=== PATIENT | male | born 1990 | race Caucasian/White ===

== ENCOUNTER 2017-10-02 15:38 | Emergency (ER) | payer OTHER ==
[~2017-10-02] VITALS: Ht 172.7 cm; Wt 68.0 kg
--- NOTE | 2017-10-02 15:53 | ED GI/GU/ABDOMINAL COMPLAINT ---
History of Present Illness General Chief Complaint: Abdominal Pain/Flank Pain Stated Complaint: ABD PAIN X5DAYS Source: patient, old records Exam Limitations: no limitations Vital Signs & Intake/Output Vital Signs & Intake/Output Vital Signs Date Time Temp Pulse Resp B/P B/P Pulse O2 O2 Flow FiO2 Mean Ox Delivery Rate 10/026 98.5 74 18 128/74 97 Room Air Room Air 10/02 2049 97.2 80 18 125/72 99 Room Air Room Air ED Intake and Output 10/03 0000 10/02 1200 Intake Total 1100 Output Total Balance 1100 Intake, IV 1100 Patient 150 lb Weight Weight Reported by Patient Measurement Method Allergies Coded Allergies: NO KNOWN ALLERGIES (10/02/17) Triage Note: 26 YO MALE TO TRIAGE C/O UPPER ABD PAIN X5 DAYS, STATES THE PAIN IS NOT MOVING TO HIS LOWER-MID ABDOMEN. +NAUSEA. DENIES URIANRY S/S. -DIARRHEA. Triage Nurses Notes Reviewed? yes Onset: Abrupt Duration: day(s): (5), constant Timing: recent history Quality/Severity: aching, moderate, sharpness Severity Numbers: 6 Location: generalized abdomen Radiation: no radiation Activities at Onset: none No Modifying Factors: none Associated Symptoms: nausea HPI: 26-year-old male with history of chronic abdominal pain presents complaining of a 5 day history of diffuse abdominal pain nonradiating not associated with eating or drinking. Pain is diffuse however worse over the mid abdomen. He states the pain has been making him nauseous. No vomiting no diarrhea constipation. He states he had similar symptoms when he was younger but lost a lot of weight and hasn't had any problems up until this past week. No recent travel no sick contacts. He denies history of abdominal surgeries in the past with chest pain back pain and urinary urgency frequency dysuria (Sathya Liang) Reconcile Medications Whey Protein Isolat/Amino Acid (Pre-Protein Powder) (Unknown Strength) POWDER (Unknown Dose) PO DAILY SUPPLEMENT (Reported) (Josh ARZATE,Jose Alfredo Jean-Baptiste) Past History Travel History Traveled to [place] past 21 day No Medical History Any Pertinent Medical History? 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 No (Sathya Liang) Review of Systems Review of Systems Constitutional: Reports: see HPI. Comments Review of systems: See HPI, All other systems negative. Constitutional, no chills no fever, no malaise HEENT: no sore throat no congestion Cardiovascular: No chest pain Skin: no rashes, no change in skin Respiratory: No dyspnea no cough GI: (+) nausea, no vomiting, no diarrhea, no bloating/constipation : No dysuria No hematuria, no frequency Muscle skeletal: No joint pain, no back pain Neurologic: , no headache Heme/endocrine: No bruising (Sathya Liang) Physical Exam Physical Exam General Appearance: well developed/nourished, alert Gastrointestinal: soft Comments: Well-developed well-nourished person in no acute distress HEENT: Normal EENT exam; PERRL, EOMI, HEAD is atraumatic. moist mucous membranes. Neck: Supple, normal range of motion Back: Nontender, Full range of motion Cardiovascular: Regular rate and rhythms no murmur Respiratory: Chest nontender.There were no bony deformities, no asymmetry. No respiratory distress. Patient speaking in full complete sentences. Breath sounds clear to auscultation bilaterally: NO W/R/R Abdomen: Soft, DIFFUSE tenderness including to the RLQ, neg rovsing, nondistended Normal bowel sounds. No rebound/guarding Extremity: No edema, full range of motion of extremities Neuro: Alert oriented x3, motor sensory normal. There were no obvious focal neurologic abnormalities. Skin: No appreciable rash on exposed skin, skin is warm and dry. Psych: Mood and affect is normal, memory and judgment is normal. Core Measures ACS in differential dx? No Sepsis Present: No Sepsis Focused Exam Completed? No (Sathya Liang) Progress Differential Diagnosis: appendicitis, bowel obstruction, colon cancer, cholecystitis, diverticulitis, gastritis, hepatitis, hernia, inflamm bowel dis, pancreatitis, peptic ulcer, PUD/GERD, perforated viscous, SBO Plan of Care: Current Medications Sig/John Start time Last Medication Dose Stop Time Status Admin Dextrose/Water 100 ML .Q1H 10/02 2100 CAN ([id number] (Standard Order)) Labs ordered old records reviewed patient acute Toradol Zofran IV, CAT scan ordered 1800 dr moreno saw and evaluated the pt, he spoke with BC breaux iv ordered, we will have surgical pa evaluate the pt 1999 surgical pa shadia singh in dept to eval 2019 dr nava in dept to eval pt- He will speak with the pts mother over the phone prior determining disposition (Olena JACOBS,Sathya) YONY IBARRA was discussed with ME HANDOFF IN which patient's disposition plan is pending surgery discussion I reevaluated patient and he is currently resting comfortable bedside it is noted to be that Dr. Nava did evaluate patient and we discussed risks and benefits of possible surgical intervention versus observation versus to be discharged home and to return if symptoms worsen Patient and mother decided that they want to be discharged Discussed disposition and plan that the patient requested with Dr. Nava who was aware and advised to return to emergency with symptoms worsen which I did to the patient (Sathya Tong) Diagnostic Imaging: Viewed by Me: CT Scan. Discussed w/RAD: CT Scan. Radiology Impression: PATIENT: ROSELINE PINTO PRESENT AGE: 26 PATIENT ACCOUNT NO: [id number] : 92 LOCATION: [facility] ORDERING PHYSICIAN: Sathya JACOBS SERVICE DATE: 10/02/17 EXAM TYPE: CAT - CT ABD & PELVIS W IV CONTRAST EXAMINATION: CT ABDOMEN AND PELVIS WITH CONTRAST CLINICAL INFORMATION: Right lower quadrant abdominal pain. Nausea and vomiting. Rule out appendicitis. COMPARISON: MRI scan of the pelvis dated 2006. TECHNIQUE: Multidetector CT volumetric acquisition of the abdomen and pelvis was performed after the administration of 94 mL of intravenous Optiray 320. The data set was reformatted in the sagittal and coronal planes and reviewed on an independent workstation. DLP: 312.77 mGy-cm. FINDINGS: LOWER CHEST: Included lung bases unremarkable. LIVER, GALLBLADDER, BILIARY TREE: Liver normal size and attenuation. No focal cystic or solid mass or intra-or extrahepatic ductal dilatation. Hepatic and portal veins patent. Gallbladder partially distended and within normal limits. PANCREAS: Normal. No ductal dilatation, mass, or surrounding stranding. SPLEEN: Normal size and appearance. Splenic vein patent. ADRENAL GLANDS AND KIDNEYS: Adrenal glands normal. Kidneys bilaterally symmetric in size and function. No focal mass, hydronephrosis, nephrolithiasis or perinephric stranding. URETERS AND BLADDER: Ureters decompressed and within normal limits. Bladder partially distended and within normal limits. PELVIC ORGANS: Prostate gland and seminal vesicles are unremarkable. The left testicle is not included in the kqpht-hf-xhiw of the exam or is surgically absent. GASTROINTESTINAL TRACT: There are multiple loops of mildly fluid distended small bowel in the right lower quadrant in region of the terminal ileum. In addition, best seen on the coronal series 602, image 38, a elongated tubular fluid-filled structure is seen with mucosal hyperenhancement and average diameter of 1.2 cm. This is suspicious for acute appendicitis with localized right lower quadrant ileus. No evidence of inflammation or abscess formation is seen. No definite free air is seen. The colon is unremarkable. LYMPHOVASCULAR STRUCTURES: Abdominal aorta normal in caliber. No periaortic collections. No abdominal or pelvic adenopathy or free fluid collection. BONES: Within normal limits. IMPRESSION: Above findings are highly suspicious for acute appendicitis with localized right lower quadrant ileus. No evidence of bowel perforation or abscess formation. Findings discussed with Dr. Jose Alfredo Moreno , 6:03 PM. DICTATED BY: Kassidy Gomez MD DATE/TIME DICTATED:10/02/171738 PROFILING MACHINE SETUP OPERATOR:EVAN DATE/TIME TRANSCRIBED:10/02/171738 CONFIDENTIAL, DO NOT COPY WITHOUT APPROPRIATE AUTHORIZATION. <Electronically signed in Other Vendor System> SIGNED BY: Kassidy Gomez MD 10/02/17 180 Initial ED EKG: none Hand-Off Endorsed To: Sathya Tong Endorsed Time: 2100 Pending: consult (surgery) (Sathya Liang) Departure Departure Disposition: STILL A PATIENT Condition: Stable Clinical Impression Primary Impression: Appendicitis Referrals: Pallavi ARZATE,Erik Jean-Baptiste (PCP/Family) Cal Jeong MD Departure Forms: Customer Survey General Discharge Information (Sathya Liang) PA/DRILL SHARPENER OPERATOR Co-Sign Statement Statement: ED Attending supervision documentation- [X] I saw and evaluated the patient. I have also reviewed all the pertinent lab results and diagnostic results. I agree with the findings and the plan of care as documented in the PA's/DRILL SHARPENER OPERATOR's documentation. [X] I have reviewed the ED Record and agree with the PA's/DRILL SHARPENER OPERATOR's documentation. [] Additions or exceptions (if any) to the PAs/DRILL SHARPENER OPERATOR's note and plan are summarized below: [5 days ago after eating patient had a sudden onset of sharp intense pain to his epigastric area. The pain lasted a few hours before solely resolving. Patient has had no symptoms since then until this afternoon when the pain came back. Pain is in his epigastric area however radiates out to the rest of his abdomen. The pain is constant. There are no aggravating or mitigating factors. The pain is sharp and stabbing in nature. He rates the pain at 6 out of 10. There is no nausea or vomiting. There is no constipation or diarrhea. On exam he has diffuse abdominal pain without any rebound or guarding. The worst pain pain is most intense in his epigastric area. Case was discussed with Dr. Nava. He will evaluate.] (Josh ARZATE,Jose Alfredo Jean-Baptiste) Departure Additional Instructions: As discussed if you develop any new concerning symptoms or symptoms worsen return to emergency room, begin the prescription of Zofran for nausea, per schizophrenia [facility]. Follow-up with gastroenterology Dr. Jeong if symptoms still continue this week BEGIN Tylenol or Motrin for pain (Sathya Tong) most intense in his epigastric area. Case was discussed with Dr. Nava. He will evaluate.] (Josh ARZATE,Jose Alfredo Jean-Baptiste) Departure Additional Instructions: As discussed if you develop any new concerning symptoms or symptoms worsen return to emergency room, begin the prescription of Zofran for nausea, per schizophrenia [facility]. Follow-up with gastroenterology Dr. Jeong if symptoms still continue this week BEGIN Tylenol or Motrin for pain (Sathya Tong)
[2017-10-02 16:32] LABS: ABSOLUTE BASOPHIL COUNT 0.1 /CUMM (0.0-0.2); ABSOLUTE EOSINOPHIL COUNT 0 /CUMM (0.0-0.7); ABSOLUTE GRANULOCYTE CT 5.3 /CUMM (1.4-6.5); ABSOLUTE LYMPH COUNT 1.9 /CUMM (1.2-3.4); ABSOLUTE MONOCYTE COUNT 0.4 /CUMM (0.10-0.60); BASOPHIL % 0.8 % (0.0-2.0); EOSINOPHIL % 0.2 % (0-5); GRANULOCYTE % 69.4 % (42.2-75.2); MEAN CORPUSCULAR HGB 27.8 PG (27.0-31.0); MEAN CORPUSCULAR HGB CONC 33.1 G/DL (33.0-37.0); MEAN CORPUSCULAR VOLUME 83.9 FL (80.0-94.0); MEAN PLATELET VOLUME 8.6 FL (7.4-10.4); PLATELET COUNT 230 /CUMM (130-400); RBC DISTRIBUTION WIDTH 13.9 % (11.5-14.5); RED BLOOD CELL CT 5.24 /CUMM (4.70-6.10); WHITE BLOOD CELL COUNT 7.7 /CUMM (4.8-10.8)
[2017-10-02] MEDS ORDERED: PRE PROTEIN PO (17:41)
--- NOTE | 2017-10-02 18:08 | CT SCAN REPORT ---
EXAMINATION: CT ABDOMEN AND PELVIS WITH CONTRAST CLINICAL INFORMATION: Right lower quadrant abdominal pain. Nausea and vomiting. Rule out appendicitis. COMPARISON: MRI scan of the pelvis dated 07/30/2006. TECHNIQUE: Multidetector CT volumetric acquisition of the abdomen and pelvis was performed after the administration of 94 mL of intravenous Optiray 320. The data set was reformatted in the sagittal and coronal planes and reviewed on an independent workstation. DLP: 312.77 mGy-cm. FINDINGS: LOWER CHEST: Included lung bases unremarkable. LIVER, GALLBLADDER, BILIARY TREE: Liver normal size and attenuation. No focal cystic or solid mass or intra-or extrahepatic ductal dilatation. Hepatic and portal veins patent. Gallbladder partially distended and within normal limits. PANCREAS: Normal. No ductal dilatation, mass, or surrounding stranding. SPLEEN: Normal size and appearance. Splenic vein patent. ADRENAL GLANDS AND KIDNEYS: Adrenal glands normal. Kidneys bilaterally symmetric in size and function. No focal mass, hydronephrosis, nephrolithiasis or perinephric stranding. URETERS AND BLADDER: Ureters decompressed and within normal limits. Bladder partially distended and within normal limits. PELVIC ORGANS: Prostate gland and seminal vesicles are unremarkable. The left testicle is not included in the ibrwg-li-kntl of the exam or is surgically absent. GASTROINTESTINAL TRACT: There are multiple loops of mildly fluid distended small bowel in the right lower quadrant in region of the terminal ileum. In addition, best seen on the coronal series 602, image 38, a elongated tubular fluid-filled structure is seen with mucosal hyperenhancement and average diameter of 1.2 cm. This is suspicious for acute appendicitis with localized right lower quadrant ileus. No evidence of inflammation or abscess formation is seen. No definite free air is seen. The colon is unremarkable. LYMPHOVASCULAR STRUCTURES: Abdominal aorta normal in caliber. No periaortic collections. No abdominal or pelvic adenopathy or free fluid collection. BONES: Within normal limits. IMPRESSION: Above findings are highly suspicious for acute appendicitis with localized right lower quadrant ileus. No evidence of bowel perforation or abscess formation. Findings discussed with Dr. Jose Alfredo Moreno 10/02/2017, 6:03 PM.
[2017-10-02 20:01] LABS: PT 12.2 SEC (9.4-12.5)
--- NOTE | 2017-10-02 20:49 | History & Physical Pre-Op ---
Betty Cardona 10/02/172036: General Information and HPI History of Present Illness: 26yoM with 6 day history of atypical abdominal pain. He had an acute onset of abdominal pain 6 days ago, in central abdomen, felt like cramps from constipation. This pain went away, and he was feeling ok until today. This am, he had some vague abdominal pain that he again though was related to having to move his bowels. He did take miralax with no help. He had no appetite today, though did have a few nachos while out to dinner with his family around 4pm. He denies n/v now, but did have some nausea earlier in the week. Of note, he has changed his diet to include protein shakes about 1 month ago. He does smoke marijuana daily, most recently this am. He rarely drinks etoh. 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 15yo Past Family/Social History Psychosocial History Smoking Status: Former Smoker ETOH Use: denies use Illicit Drug Use: marijuana (daily use) Exam & Diagnostic Data Last 24 Hrs of Vital Signs/I&O Vital Signs Date Time Temp Pulse Resp B/P B/P Pulse O2 O2 Flow FiO2 Mean Ox Delivery Rate 10/02 1804 99.0 72 18 123/58 100 Room Air 10/02 1541 97.3 80 20 152/67 100 Intake & Output 10/02 1600 10/02 0800 10/02 0000 Intake Total Output Total Balance Patient 150 lb Weight Weight Reported by Patient Measurement Method Physical Exam: gen- nad card- [id number] pulm- no audible wheeze abd- ttp thoughout, most tender rlq/suprapubic, no r/g ext- calves soft nt Last 24 Hrs of Labs/Sheldon: Laboratory Tests 10/02/171947: PT 12.2, INR 1.12 10/02/17 1621: Anion Gap 12, Estimated GFR > 60, BUN/Creatinine Ratio 14.3, Glucose 87, Calcium 10.1, Total Bilirubin 0.4, AST 41, ALT 44, Alkaline Phosphatase 43, Total Protein 7.3, Albumin 4.6, Globulin 2.7, Albumin/Globulin Ratio 1.7, Lipase 119, CBC w Diff NO MAN DIFF REQ, RBC 5.24, MCV 83.9, MCH 27.8, MCHC 33.1, RDW 13.9, MPV 8.6, Gran % 69.4, Lymphocytes % 24.8, Monocytes % 4.8, Eosinophils % 0.2, Basophils % 0.8, Absolute Granulocytes 5.3, Absolute Lymphocytes 1.9, Absolute Monocytes 0.4, Absolute Eosinophils 0, Absolute Basophils 0.1 10/02/17 1544: Urine Color Cancelled, Urine Clarity Cancelled, Urine pH Cancelled, Ur Specific [place] Cancelled, Urine Protein Cancelled, Urine Ketones Cancelled, Urine Nitrite Cancelled, Urine Bilirubin Cancelled, Urine Urobilinogen Cancelled, Ur Leukocyte Esterase Cancelled, Ur Microscopic Cancelled, Urine Hemoglobin Cancelled, Urine Glucose Cancelled Diagnostic Data Other Results SERVICE DATE: 10/02/17-155 EXAM TYPE: CAT - CT ABD & PELVIS W IV CONTRAST EXAMINATION: CT ABDOMEN AND PELVIS WITH CONTRAST CLINICAL INFORMATION: Right lower quadrant abdominal pain. Nausea and vomiting. Rule out appendicitis. COMPARISON: MRI scan of the pelvis dated 07/30/2006. TECHNIQUE: Multidetector CT volumetric acquisition of the abdomen and pelvis was performed after the administration of 94 mL of intravenous Optiray 320. The data set was reformatted in the sagittal and coronal planes and reviewed on an independent workstation. DLP: 312.77 mGy-cm. FINDINGS: LOWER CHEST: Included lung bases unremarkable. LIVER, GALLBLADDER, BILIARY TREE: Liver normal size and attenuation. No focal cystic or solid mass or intra-or extrahepatic ductal dilatation. Hepatic and portal veins patent. Gallbladder partially distended and within normal limits. PANCREAS: Normal. No ductal dilatation, mass, or surrounding stranding. SPLEEN: Normal size and appearance. Splenic vein patent. ADRENAL GLANDS AND KIDNEYS: Adrenal glands normal. Kidneys bilaterally symmetric in size and function. No focal mass, hydronephrosis, nephrolithiasis or perinephric stranding. URETERS AND BLADDER: Ureters decompressed and within normal limits. Bladder partially distended and within normal limits. PELVIC ORGANS: Prostate gland and seminal vesicles are unremarkable. The left testicle is not included in the hjmap-di-mawy of the exam or is surgically absent. GASTROINTESTINAL TRACT: There are multiple loops of mildly fluid distended small bowel in the right lower quadrant in region of the terminal ileum. In addition, best seen on the coronal series 602, image 38, a elongated tubular fluid-filled structure is seen with mucosal hyperenhancement and average diameter of 1.2 cm. This is suspicious for acute appendicitis with localized right lower quadrant ileus. No evidence of inflammation or abscess formation is seen. No definite free air is seen. The colon is unremarkable. LYMPHOVASCULAR STRUCTURES: Abdominal aorta normal in caliber. No periaortic collections. No abdominal or pelvic adenopathy or free fluid collection. BONES: Within normal limits. IMPRESSION: Above findings are highly suspicious for acute appendicitis with localized right lower quadrant ileus. No evidence of bowel perforation or abscess formation. Assessment/Plan Assessment/Plan: A- 26yoM with atypical presentation of possible appendicitis, stable. P- operative plan to be discussed with pt, family, and attending Taqueria Al MD 10/02/173: Assessment/Plan As Ranked By This Provider Problem List: 1. Appendicitis Attending MD Review Statement Attending Statement Attending MD Statement: examined this patient, discuss w/resident/PA/ASSISTANT CHIEF ENGINEER, reviewed images Attending Assessment/Plan: 26yo healthy male with epigastric, now lower abdominal pain. mild nausea without vomiting. no f/c/s. Examination with RLQ and suprapubic tenderness. wbc normal without shift. CT images personally reviewed. There is a mildly dilated appendix with hyperemia of mucosa. There is surrounding small bowel fluid filled loops. Impression is early appendicitis. Recommendations are that of broad spectrum antibiotics and laparoscopic appendectomy. Patient is reluctant to undergo surgery without first consulting with his mother. Final decision to be made then. Discussed risks of surgery including but not limited to bleeding, infection.
[2017-10-02 23:26] VITALS: BP 128/74
== END 2017-10-02 23:27 ==
LOC: ERH 15:38
PROVIDERS: Physician Assistant Medical
DX: K37 Unspecified appendicitis (principal)
CPT/HCPCS: 74177; 96365; 96375; J1885; J2405

== ENCOUNTER → 2017-10-03 | Day surgery (SDC) | payer OTHER ==
[~2017-10-03] VITALS: Ht 172.7 cm; Wt 68.0 kg
[~2017-10-03] MED LIST: PRE PROTEIN PO
[2017-10-03 13:26] VITALS: BP 121/67
--- NOTE | 2017-10-03 13:31 | ED GENERAL ADULT ---
See Addendum History of Present Illness General Chief Complaint: General Adult Stated Complaint: SIB DR AL FOR SURGERY Source: patient Exam Limitations: no limitations (1) Vital Signs & Intake/Output Vital Signs & Intake/Output Vital Signs Date Time Temp Pulse Resp B/P B/P Pulse O2 O2 Flow FiO2 Mean Ox Delivery Rate 10/03 1421 Room Air Room Air 10/03 1326 96.5 75 16 121/67 98 Room Air Allergies Coded Allergies: NO KNOWN ALLERGIES (10/02/17) Reconcile Medications Whey Protein Isolat/Amino Acid (Pre-Protein Powder) (Unknown Strength) POWDER (Unknown Dose) PO DAILY SUPPLEMENT (Reported) Triage Note: 26 Y/O MALE STATES HE WAS EVAL'D IN ED LAST NIGHT AND TOLD HIS APPENDIX NEEDS TO COME OUT. PT STATES HE REQUESTED DISCHARGE AND WANTED TO FOLLOW UP WITH GI HOWEVER WAS TOLD TODAY TO COME BACK TO [facility] AND HAVE SURGERY. PT STATES PAIN CONTINUES. DENIES N/V/D. DENIES FEVERS. STATES DR JOHNATHAN RODARTE'D HIM LAST EVENING. DR ZENDEJAS IN TRIAGE. Triage Nurses Notes Reviewed? yes Onset: Abrupt Duration: hour(s): Timing: recent history HPI: 10/03/17 1:38 pm 26-year-old male presents to the emergency department with ongoing suprapubic and lower quadrant abdominal pain. He had a CT scan yesterday that was suspicious for appendicitis. He declined to have surgery yesterday. He called Dr. Al today informing him that he had ongoing pain and was instructed to return for appendectomy he said he last ate approximately 4-6 hours prior to arrival. He denies fever or vomiting or other complaints. Past History Travel History Traveled to [place] past 21 day No Medical History Any Pertinent Medical History? 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 15yo Psychosocial History What is your primary language Belarusian Tobacco Use: Quit >30 days ago Family History Hx Contributory? No Review of Systems Review of Systems Constitutional: Denies: fever. EENTM: Reports: no symptoms. Respiratory: Reports: no symptoms. Cardiovascular: Reports: no symptoms. GI: Reports: abdominal pain. Genitourinary: Reports: no symptoms. Musculoskeletal: Reports: no symptoms. Skin: Reports: no symptoms. Neurological/Psychological: Reports: no symptoms. Hematologic/Endocrine: Reports: no symptoms. Immunologic/Allergic: Reports: no symptoms. Physical Exam Physical Exam General Appearance: alert, awake, anxious, moderate distress Head: atraumatic, normal appearance Eyes: Bilateral: normal appearance, PERRL, EOMI. Ears, Nose, Throat: normal pharynx, normal ENT inspection Neck: normal inspection Respiratory: no respiratory distress Cardiovascular: regular rate/rhythm Peripheral Pulses: 4+ radial (R), 4+ radial (L) Gastrointestinal: soft, tenderness Back: normal range of motion Extremities: normal inspection Neurologic/Psych: no motor/sensory deficits, awake, alert, oriented x 3 Skin: intact, normal color, warm/dry Core Measures ACS in differential dx? No CVA/TIA Diagnosis: No Sepsis Present: No Sepsis Focused Exam Completed? No Progress Differential Diagnoses I considered the following diagnoses in my evaluation of the patient: [ Appendicitis, colitis] Plan of Care: Orders Procedure Date/time Status URINALYSIS 10/03 1322 Active PARTIAL THROMBOPLASTIN TIME 10/03 1322 Active PROTHROMBIN TIME 10/03 1322 Active COMPREHENSIVE METABOLIC PANEL 10/03 1322 Active CBC WITHOUT DIFFERENTIAL 10/03 1322 Active TYPE & SCREEN (NOT X-MATCH) 10/03 1322 Active Initial ED EKG: none Departure Departure Disposition: STILL A PATIENT Condition: Stable Clinical Impression Primary Impression: Acute appendicitis Referrals: Pallavi ARZATE,Erik Jean-Baptiste (PCP/Family) Departure Forms: Customer Survey General Discharge Information OR/GI Note Spoke With: Taqueria lA MD ED Treatment Decision: ROSELINE PINTO requires urgent operative management or an emergent procedure that cannot be performed in the Emergency Room setting. Critical Care Note Critical Care Note Critical Care Time: 30-74 min
--- NOTE | 2017-10-03 14:08 | History & Physical Pre-Op ---
Betty Cardona 10/03/17 1402: General Information and HPI History of Present Illness: Patient returns to ED due to persistent abdominal pain. He was seen <24hr ago in ED by myself and Dr. Al, and decided against appendectomy at that time. He went home from the ED, however now returns with worsening pain requesting appendectomy. 26yoM with 7 day history of atypical abdominal pain. He had an acute onset of abdominal pain 6 days ago, in central abdomen, felt like cramps from constipation. This pain went away, and he was feeling ok until today. Yesterday am, he had some vague abdominal pain that he again though was related to having to move his bowels. He did take miralax with no help. He had no appetite today, though did have a banana at 10am. He denies n/v now, but did have some nausea earlier in the week. Of note, he has changed his diet to include protein shakes about 1 month ago. He does smoke marijuana daily, most recently this am. He rarely drinks etoh. 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 15yo Past Family/Social History Psychosocial History Smoking Status: Former Smoker ETOH Use: occasional use Illicit Drug Use: marijuana (daily) Functional Ability Ambulation: independent Exam & Diagnostic Data Last 24 Hrs of Vital Signs/I&O Vital Signs Date Time Temp Pulse Resp B/P B/P Pulse O2 O2 Flow FiO2 Mean Ox Delivery Rate 10/03 1326 96.5 75 16 121/67 98 Room Air Intake & Output 10/03 1600 10/03 0800 10/03 0000 Intake Total Output Total Balance Patient 150 lb Weight Weight Reported by Patient Measurement Method Physical Exam: Patient examined 10/02/16: gen- nad card- [id number] pulm- no audible wheeze abd- ttp thoughout, most tender rlq/suprapubic, no r/g ext- calves soft nt Last 24 Hrs of Labs/Sheldon: from 10/02/17: INR 1.12 Na 145 K 3.9 BUN10 Cr0.7 glu 87 wbc 7.7 hgb 14.5 hct 44 plt 230 Diagnostic Data Other Results SERVICE DATE: 10/02/17-1558 EXAM TYPE: CAT - CT ABD & PELVIS W IV CONTRAST EXAMINATION: CT ABDOMEN AND PELVIS WITH CONTRAST CLINICAL INFORMATION: Right lower quadrant abdominal pain. Nausea and vomiting. Rule out appendicitis. COMPARISON: MRI scan of the pelvis dated 07/30/2006. TECHNIQUE: Multidetector CT volumetric acquisition of the abdomen and pelvis was performed after the administration of 94 mL of intravenous Optiray 320. The data set was reformatted in the sagittal and coronal planes and reviewed on an independent workstation. DLP: 312.77 mGy-cm. FINDINGS: LOWER CHEST: Included lung bases unremarkable. LIVER, GALLBLADDER, BILIARY TREE: Liver normal size and attenuation. No focal cystic or solid mass or intra-or extrahepatic ductal dilatation. Hepatic and portal veins patent. Gallbladder partially distended and within normal limits. PANCREAS: Normal. No ductal dilatation, mass, or surrounding stranding. SPLEEN: Normal size and appearance. Splenic vein patent. ADRENAL GLANDS AND KIDNEYS: Adrenal glands normal. Kidneys bilaterally symmetric in size and function. No focal mass, hydronephrosis, nephrolithiasis or perinephric stranding. URETERS AND BLADDER: Ureters decompressed and within normal limits. Bladder partially distended and within normal limits. PELVIC ORGANS: Prostate gland and seminal vesicles are unremarkable. The left testicle is not included in the [id number] of the exam or is surgically absent. GASTROINTESTINAL TRACT: There are multiple loops of mildly fluid distended small bowel in the right lower quadrant in region of the terminal ileum. In addition, best seen on the coronal series 602, image 38, a elongated tubular fluid-filled structure is seen with mucosal hyperenhancement and average diameter of 1.2 cm. This is suspicious for acute appendicitis with localized right lower quadrant ileus. No evidence of inflammation or abscess formation is seen. No definite free air is seen. The colon is unremarkable. LYMPHOVASCULAR STRUCTURES: Abdominal aorta normal in caliber. No periaortic collections. No abdominal or pelvic adenopathy or free fluid collection. BONES: Within normal limits. IMPRESSION: Above findings are highly suspicious for acute appendicitis with localized right lower quadrant ileus. No evidence of bowel perforation or abscess formation. Assessment/Plan Assessment/Plan: A- 26yoM with atypical presentation of likely appendicitis, returns to ED today with persistent, worsening abd pain. P- NPO. IVF. IV abx. To OR for appendectomy. Dr. Al aware As Ranked By This Provider Problem List: 1. Appendicitis Servando ARZATE,Taqueria Lind 10/03/17 1520: Attending MD Review Statement Attending Statement Attending MD Statement: examined this patient Attending Assessment/Plan: as above. see note from yesterday. Patient elected to go home last night after receiving a single dose of IV Unasyn in preparation for appendectomy. He called me from his home during my office hours this morning complaining of recurrent and worsening abdominal pain. I recommended he go to the emergency room so that laparoscopic appendectomy can be performed. His examination is unchanged from yesterday and I recommend surgery. He is informed the risk of the operation including bleeding infection agrees to proceed
--- NOTE | 2017-10-03 15:24 | Operative Report ---
Operative/Inv Procedure Report Surgery Date: 10/03/17 Name of Procedure: Laparoscopic appendectomy Pre-Operative Diagnosis: Acute appendicitis Post-Operative Diagnosis: Same Estimated Blood Loss: scant Surgeon/Packing Line Operator: Taqueria Al M.D./Betty JACOBS/breezy JACOBS Anesthesia: general endotracheal tube Specimens: Appendix Operative Indication: Healthy 26-year-old male with persistent right lower quadrant abdominal pain and tenderness. He presents for appendectomy Operative/Procedure Note Note: After consent patient is brought to the operating room and laid supine. General anesthesia was obtained his abdomen was prepped and draped. Skin above the umbilicus was after local anesthesia a curvilinear incision made sharply. We dissected through subcutaneous tissues tissues bluntly and identified the fascia. It was grasped with [place]'s and a fasciotomy created sharply. The peritoneum was entered sharply and a blunt Muñoz port was placed. Pneumoperitoneum was achieved. 2, 5 mm ports were placed in the suprapubic region and left lower quadrant, after local anesthesia was instilled and under direct vision the camera. Patient placed in Trendelenburg and rotated towards the left. The abdomen was explored. The appendix was identified and right lower quadrant. The distal two thirds of the appendix was dilated and inflamed. There is no evidence of perforation. The base was supple and grasped with a Lucia clamp. A window in the mesentery was developed with a [place] dissector. The mesentery was divided with Endo [place] load. The base was divided with a reload. The appendix was placed in Endo Catch bag and cinched up. The right lower quadrant and pelvis were then irrigated with normal saline. Hemostasis was adequate. Ports then removed and appendix delivered and passed off the field. The fascia was closed 0 Vicryl suture. Skin incisions closed with 4-0 Vicryl. Steri-Strips and sterile dressing applied. Sponge and needle counts are correct CC: Pallavi ARZATE,Erik Jean-Baptiste
== END ==
LOC: ERH 13:20 → ER-OR 13:31 → ERH 13:31 → STS 14:33 → ER-OR 14:36
DX: K35.80 Unspecified acute appendicitis (principal); Z87.891 Personal history of nicotine dependence
CPT/HCPCS: C9399; J0131; J2175; J2250; J2270; J3010